=== PATIENT | female | born 1975 | race African-American/Black ===

== ENCOUNTER 2018-01-28 21:08 | Emergency (ER) | payer BC, OTHER ==
[~2018-01-28] VITALS: Ht 165.1 cm; Wt 59.0 kg
--- NOTE | 2018-01-28 21:10 | NUR ---
L CALF PAIN AND SWELLING, NAD NOTED, VSS, RESP EVEN AND UNLABORED, PT WAS PUT ON HOSPITAL GOWN AND MONITOR, AT .
[2018-01-28] MEDS ORDERED: IBUPROFEN 600 MG TABLET PO ONE ×2 (21:30→21:34)
--- NOTE | 2018-01-28 22:11 | NUR ---
Patient discharged to home in stable condition. Written and verbal after care instructions given. Patient verbalizes understanding of instruction. Prescription given.
[2018-01-28 22:12] VITALS: BP 149/97
== END 2018-01-28 22:14 | disposition home or self-care (01) ==
LOC: ER 21:11
DX: M79.662 Pain in left lower leg (principal); I10 Essential (primary) hypertension; G43.909 Migraine, unspecified, not intractable, without status migrainosus
CPT/HCPCS: 93971-TC; A4606; Z7610

== ENCOUNTER 2019-06-23 04:27 | Emergency (ER) | payer BC, OTHER ==
[~2019-06-23] VITALS: Ht 165.1 cm; Wt 59.0 kg
--- NOTE | 2019-06-23 04:30 | NUR ---
PT BIBFAMILY C/O BILATERAL BREAST AND ABDOMINAL PAIN S/P BREAST AUGMENTATION AND TUMMY TUCK X1 DAY. PT STATES SHE TOOK NORCO 5MG AND VALIUM 5MG PO X2HR PROTOTYPE SPECIAL BUILD WITH NO RELIEF. PT AAOX4. APPEARS UNCOMFORTABLE, GRIMACING IN PAIN. NOTED HYPERTENSION, ER MD AWARE. NO SIGNS OF INFECTION NOTED. PT PLACED ON MONITOR, WILL CONTINUE TO MONITOR.
[2019-06-23] MEDS ORDERED: ONDANSETRON 4 MG TAB.RAPDIS ONE (04:50)
[2019-06-23] MEDS ORDERED: MORPHINE SULFATE INJ 4 MG/ML DISP.SYRIN ONE (04:50)
[2019-06-23] MEDS ORDERED: MORPHINE SULFATE INJ 2 MG/ML DISP.SYRIN IM ONE (05:00)
[2019-06-23] MEDS ORDERED: ONDANSETRON 4 MG TAB.RAPDIS SL ONE (05:00)
[2019-06-23] MEDS ORDERED: HYDROMORPHONE 1 MG/1 ML DISP.SYRIN ONE ×2 (05:18→06:14)
[2019-06-23] MEDS ORDERED: HYDROMORPHONE 1 MG/1 ML DISP.SYRIN IM ONE (05:30)
[2019-06-23] MEDS ORDERED: ONDANSETRON HCL/PF 4 MG/2 ML VIAL ONE (05:37)
[2019-06-23] MEDS ORDERED: IV NS 0.9% 1,000 ML BAG IV ONE (06:00)
[2019-06-23] MEDS ORDERED: ONDANSETRON HCL/PF - ER 4 MG/2 ML VIAL IV ONE (06:00)
[2019-06-23] MEDS ORDERED: HYDROMORPHONE 1 MG/1 ML DISP.SYRIN IV PRN (06:00)
--- NOTE | 2019-06-23 06:22 | NUR ---
PT STILL IN SEVERE PAIN. NOTED HYPERTENSION. ER MD AWARE
--- NOTE | 2019-06-23 07:20 | NUR ---
PT STATES SHE FEESL RELIEF FROM PAIN. PT HYPERTENSIVE, PER ER MD MEDICALLY CLEARED FOR DISCHARGE Patient discharged to home in stable condition. Written and verbal after care instructions given. Patient verbalizes understanding of instruction.IV removed. Catheter intact and site benign. Pressure and 4x4 applied to site. No bleeding noted. PT ASSISTED TO CAR VIA WHEELCHAIR. INSTRUCTED NOT TO DRIVE, LEFT WITH FAMILY
[2019-06-23 07:22] VITALS: BP 186/91
== END 2019-06-23 07:22 | disposition home or self-care (01) ==
LOC: ER 04:29
DX: S20.02XA Contusion of left breast, initial encounter (principal); S20.01XA Contusion of right breast, initial encounter; G89.18 Other acute postprocedural pain; G43.909 Migraine, unspecified, not intractable, without status migrainosus; I10 Essential (primary) hypertension; X58.XXXA Exposure to other specified factors, initial encounter; Y93.89 Activity, other specified; Y92.89 Other specified places as the place of occurrence of the external cause; Y99.8 Other external cause status
CPT/HCPCS: 96372 ×2; 96374; 96375; 99283; J1170 ×2; J2270; J2405 ×2; J7030; Q0162